=== PATIENT | female | born 1965 | race Caucasian/White ===

== ENCOUNTER 2017-02-22 12:23 | Emergency (ER) | payer OTHER ==
[~2017-02-22] VITALS: Ht 162.6 cm; Wt 86.4 kg
[2017-02-22] MEDS ORDERED: IOHEXOL 350 MG/ML 10 ML VIAL (for RAD DIAG) IVCONTRAST ONE (12:24)
[2017-02-22 12:25] VITALS: BP 131/81; PULSE 78; RESP 16; TEMP 98.8; O2SAT 98
[2017-02-22] MEDS ORDERED: KETOROLAC TROMETHAMINE 30 MG/ML (IVP) VIAL IV PUSH ONE (13:30)
[2017-02-22] MEDS ORDERED: DEXAMETHASONE SOD PHOS 20 MG/5 ML VIAL IV PUSH ONE (13:30)
[2017-02-22] MEDS ORDERED: SODIUM CHLOR 0.9% 1000 ML INJ 1,000 ML IV ONE (13:30)
--- NOTE | 2017-02-22 13:32 | PD ---
HPI Chief Complaint: Cardiac Complaint Time Seen by Provider: 13:13 Travel History International Travel<30 days: No Contact w/Intl Traveler<30days: No Traveled to known affect area: No History of Present Illness HPI Patient is a 51-year-old female who presents to emergency room with multiple complaints. Patient reports that for the past 3 days, she has been having increased body aches, reports that she has been having fevers and chills. Reports that she has not had any cough or congestion, denies being around any sick contacts. Patient reports that prior to coming to the emergency room, she had temperature of 103. She did take antipyretics prior to coming to the emergency room. Patient reports that she is also having chest pain. Patient reports that chest pain is substernal nature and feels like a sharp and stabbing pain. Patient reports that pain is exacerbated by inspiration, reports no diaphoresis with chest pain. Patient denies any recent travels or trips, denies history of coronary artery disease, hypertension or diabetes or hyperlipidemia. Patient reports that overall, she is healthy, reports that she does see a physician regularly and does not take any medications a every day basis. Patient reports that she did not receive the influenza vaccine this year. Patient denies any recent travels/trips. PFSH Past Medical History Medical History: Denies Significant Hx ?: Not LMP: 12/25/16 Menopausal: Yes Tubal Ligation: Yes Past Surgical History Other Surgery: Yes (back surgery) Social History Alcohol Use: No Tobacco Use: No Substance Use: No Allergies-Medications (Allergen,Severity, Reaction): Coded Allergies: No Known Allergies (Unverified , 02/22/17) Reported Meds & Prescriptions Reported Meds & Active Scripts Active No Active Prescriptions or Reported Medications Review of Systems General / Constitutional: Positive: Fever, Chills Eyes: No: Blurred Vision, Visual changes HENT: Positive: Headaches, No: Lightheadedness, Sore Throat, Neck Pain Cardiovascular: Positive: Chest Pain or Discomfort, Palpitations, No: Diaphoresis, Syncope, Dyspnea on exertion Respiratory: Positive: Shortness of Breath, No: Cough Gastrointestinal: No: Nausea, Vomiting, Abdominal Pain Genitourinary: No: Urgency, Frequency, Dysuria Musculoskeletal: No: Pain Skin: No Rash Neurologic: Positive: Headache, No: Weakness, Dizziness, Syncope Psychiatric: No: Depression Endocrine: No: Polydipsia Hematologic/Lymphatic: No: Easy Bruising Physical Exam Narrative GENERAL: NAD, nontoxic appearing SKIN: Focused skin assessment warm/dry. HEAD: Atraumatic. Normocephalic. EYES: Pupils equal and round. No scleral icterus. No injection or drainage. ENT: No nasal bleeding or discharge. Mucous membranes pink and moist. NECK: Trachea midline. No JVD. Negative Kernig's and Brudzinski's sign, no nuchal rigidity CARDIOVASCULAR: Regular rate and rhythm. No murmur appreciated. RESPIRATORY: No accessory muscle use. Clear to auscultation. Breath sounds equal bilaterally. GASTROINTESTINAL: Abdomen soft, non-tender, nondistended. Hepatic and splenic margins not palpable. MUSCULOSKELETAL: No obvious deformities. No clubbing. No cyanosis. No edema. NEUROLOGICAL: Awake and alert. No obvious cranial nerve deficits. Motor grossly within normal limits. Normal speech. CN 2-12 grossly intact with no neurological deficits PSYCHIATRIC: Appropriate mood and affect; insight and judgment normal. Data Data Last Documented VS Vital Signs Date Time Temp Pulse Resp B/P (MAP) Pulse Ox O2 Delivery O2 Flow Rate FiO2 02/22/17 12:25 98.8 78 16 131/81 (98) 98 Orders Orders Electrocardiogram (02/22/17 13:19) Complete Blood Count With Diff (02/22/17 13:19) Comprehensive Metabolic Panel (02/22/17 13:19) Influenzae A/B Antigen (02/22/17 13:19) Chest, Single Ap (02/22/17 13:19) Ecg Monitoring (02/22/17 13:19) Iv Access Insert/Monitor (02/22/17 13:19) Oximetry (02/22/17 13:19) Ketorolac Inj (Toradol Inj) (02/22/17 13:30) Ckmb (Isoenzyme) Profile (02/22/17 13:23) D-Dimer (02/22/17 13:23) Prothrombin Time / Inr (Pt) (02/22/17 13:23) Act Partial Throm Time (Ptt) (02/22/17 13:23) Troponin I (02/22/17 13:23) Sodium Chlor 0.9% 1000 Ml Inj (Ns 1000 M (02/22/17 13:30) Dexamethasone Inj (Decadron Inj) (02/22/17 13:30) Ct Pulmonary Angiogram (02/22/17 14:22) Labs Laboratory Tests Test 02/22/17 13:40 White Blood Count 6.1 TH/MM3 Red Blood Count 4.09 MIL/MM3 Hemoglobin 12.6 GM/DL Hematocrit 37.8 % Mean Corpuscular Volume 92.3 FL Mean Corpuscular Hemoglobin 30.8 PG Mean Corpuscular Hemoglobin Concent 33.3 % Red Cell Distribution Width 13.4 % Platelet Count 333 TH/MM3 Mean Platelet Volume 8.3 FL Neutrophils (%) (Auto) 57.5 % Lymphocytes (%) (Auto) 28.2 % Monocytes (%) (Auto) 13.0 % Eosinophils (%) (Auto) 0.9 % Basophils (%) (Auto) 0.4 % Neutrophils # (Auto) 3.5 TH/MM3 Lymphocytes # (Auto) 1.7 TH/MM3 Monocytes # (Auto) 0.8 TH/MM3 Eosinophils # (Auto) 0.1 TH/MM3 Basophils # (Auto) 0.0 TH/MM3 CBC Comment DIFF FINAL Differential Comment Prothrombin Time 10.6 SEC Prothromb Time International Ratio 1.0 RATIO Activated Partial Thromboplast Time 29.7 SEC D-Dimer Quantitative (PE/DVT) 1.25 MG/L FEU Blood Urea Nitrogen 9 MG/DL Creatinine 0.59 MG/DL Random Glucose 100 MG/DL Total Protein 8.8 GM/DL Albumin 3.5 GM/DL Calcium Level 10.7 MG/DL Alkaline Phosphatase 148 U/L Aspartate Amino Transf (AST/SGOT) 44 U/L Alanine Aminotransferase (ALT/SGPT) 92 U/L Total Bilirubin 0.3 MG/DL Sodium Level 136 MEQ/L Potassium Level 3.5 MEQ/L Chloride Level 101 MEQ/L Carbon Dioxide Level 28.8 MEQ/L Anion Gap 6 MEQ/L Estimat Glomerular Filtration Rate 107 ML/MIN Total Creatine Kinase 65 U/L Troponin I LESS THAN 0.02 NG/ML MDM Medical Decision Making Medical Screen Exam Complete: Yes Emergency Medical Condition: Yes Medical Record Reviewed: Yes Interpretation(s) EKG at 1342: NSR at 73bpm, qt/qtc: 380/406, nonspecific t wave changes, no acute st seg changes Vital Signs Date Time Temp Pulse Resp B/P (MAP) Pulse Ox O2 Delivery O2 Flow Rate FiO2 02/22/17 12:25 98.8 78 16 131/81 (35) 98 Differential Diagnosis Influenza, viral syndrome, pneumonia, ACS, arrhythmia, PE, pneumothorax Narrative Course 51-year-old female who presents to emergency room with multiple complaints, patient reports that she has had fever, chills and body aches with chest pain which has been ongoing for the past 3 days. During the course of the patients emergency department visit, the patients history, examination, and differential diagnosis were reviewed with the patient. The patient was placed on a cardiac catheterization technologist with oximetry and frequent blood pressure monitoring. The patient had a 20-gauge IV access obtained and blood work sent for analysis. The patient was initially provided IV fluids, IV Toradol as well as IV dexamethasone The patients laboratory studies were reviewed and remarkable for: Laboratory Tests Test 02/22/17 13:40 White Blood Count 6.1 TH/MM3 (4.0-11.0) Red Blood Count 4.09 MIL/MM3 (4.00-5.30) Hemoglobin 12.6 GM/DL (11.6-15.3) Hematocrit 37.8 % (35.0-46.0) Mean Corpuscular Volume 92.3 FL (80.0-100.0) Mean Corpuscular Hemoglobin 30.8 PG (27.0-34.0) Mean Corpuscular Hemoglobin Concent 33.3 % (32.0-36.0) Red Cell Distribution Width 13.4 % (11.6-17.2) Platelet Count 333 TH/MM3 (150-450) Mean Platelet Volume 8.3 FL (7.0-11.0) Neutrophils (%) (Auto) 57.5 % (16.0-70.0) Lymphocytes (%) (Auto) 28.2 % (9.0-44.0) Monocytes (%) (Auto) 13.0 % (0.0-8.0) Eosinophils (%) (Auto) 0.9 % (0.0-4.0) Basophils (%) (Auto) 0.4 % (0.0-2.0) Neutrophils # (Auto) 3.5 TH/MM3 (1.8-7.7) Lymphocytes # (Auto) 1.7 TH/MM3 (1.0-4.8) Monocytes # (Auto) 0.8 TH/MM3 (0-0.9) Eosinophils # (Auto) 0.1 TH/MM3 (0-0.4) Basophils # (Auto) 0.0 TH/MM3 (0-0.2) CBC Comment DIFF FINAL Differential Comment Prothrombin Time 10.6 SEC (9.8-11.6) Prothromb Time International Ratio 1.0 RATIO Activated Partial Thromboplast Time 29.7 SEC (24.3-30.1) D-Dimer Quantitative (PE/DVT) 1.25 MG/L FEU (0.00-0.50) Blood Urea Nitrogen 9 MG/DL (7-18) Creatinine 0.59 MG/DL (0.50-1.00) Random Glucose 100 MG/DL (74-106) Total Protein 8.8 GM/DL (6.4-8.2) Albumin 3.5 GM/DL (3.4-5.0) Calcium Level 10.7 MG/DL (8.5-10.1) Alkaline Phosphatase 148 U/L (45-117) Aspartate Amino Transf (AST/SGOT) 44 U/L (15-37) Alanine Aminotransferase (ALT/SGPT) 92 U/L (10-53) Total Bilirubin 0.3 MG/DL (0.2-1.0) Sodium Level 136 MEQ/L (136-145) Potassium Level 3.5 MEQ/L (3.5-5.1) Chloride Level 101 MEQ/L (98-107) Carbon Dioxide Level 28.8 MEQ/L (21.0-32.0) Anion Gap 6 MEQ/L (5-15) Estimat Glomerular Filtration Rate 107 ML/MIN (>89) Microbiology Date/Time Source Procedure Growth Status 02/22/17 13:40 Nasal Aspirate Influenza Types A,B Antigen ([facility]) - Final NEGATIVE FOR FLU A AND B ANTIGEN.... Complete Patient with a d-dimer of 1.25, patient does have pleuritic chest pain, CTA ordered to rule out PE. All labs and studies as well as incidental findings were reviewed with patient - patient agreeable to CTA, overall, patient reports that she is feeling much better at this time Radiology studies were reviewed and remarkable for: Last Impressions Chest X-Ray 02/22/17 1319 Signed Impressions: Service Date/Time: Wednesday, February 22, 2017 13:45 - CONCLUSION: No acute disease. Martínez Hall MD PE study pending - this was signed out to Dr. Weaver at change of shift. Diagnosis Primary Impression: Viral syndrome Patient Instructions: General Instructions Additional Instructions: Please provide patient with a copy of their lab work and studies at discharge* * Please follow up with your primary care doctor in 2-3 days Return to the ER if symptoms worsen or progress Return to the ER as needed Please drink plenty of fluids Scripts No Active Prescriptions or Reported Meds Nicole Mike DO Feb 22, 2017 13:32
[2017-02-22 14:03] LABS: AUTOMATED NEUTROPHIL # 3.5 TH/MM3 (1.8-7.7); BASOPHIL % 0.4 % (0.0-2.0); EOSINOPHIL # 0.1 TH/MM3 (0-0.4); EOSINOPHIL % 0.9 % (0.0-4.0); HEMATOCRIT 37.8 % (35.0-46.0); HEMO FLAGS DIFF FINAL; LYMPH % 28.2 % (9.0-44.0); LYMPHOCYTE # 1.7 TH/MM3 (1.0-4.8); MEAN CELL VOLUME 92.3 FL (80.0-100.0); MEAN CORPUSCULAR HEMOGLOBIN 30.8 PG (27.0-34.0); MEAN CORPUSCULAR HGB CONC 33.3 % (32.0-36.0); NEUT % 57.5 % (16.0-70.0); PLATELET COUNT 333 TH/MM3 (150-450); RED BLOOD COUNT 4.09 MIL/MM3 (4.00-5.30); RED CELL DISTRIBUTION WIDTH 13.4 % (11.6-17.2); WHITE BLOOD COUNT 6.1 TH/MM3 (4.0-11.0)
[2017-02-22 14:15] LABS: APTT (PATIENT) 29.7 SEC (24.3-30.1); PROTHROMBIN TIME - PATIENT 10.6 SEC (9.8-11.6)
[2017-02-22 14:18] LABS: ALT (GPT) 92 U/L (10-53); ANION GAP 6 MEQ/L (5-15); AST (GOT) 44 U/L (15-37); BICARBONATE 28.8 MEQ/L (21.0-32.0); BLOOD UREA NITROGEN 9 MG/DL (7-18); CHLORIDE 101 MEQ/L (98-107); GLOMERULAR FILTRATION RATE 107 ML/MIN (>89); POTASSIUM 3.5 MEQ/L (3.5-5.1); SODIUM (NA) 136 MEQ/L (136-145)
[2017-02-22 14:21] LABS: ALKALINE PHOSPHATASE 148 U/L (45-117); TOTAL BILIRUBIN ADULT 0.3 MG/DL (0.2-1.0)
[2017-02-22 15:08] LABS: CREATINE KINASE 65 U/L (26-192)
--- NOTE | 2017-02-22 15:24 | RADRPT ---
EXAM DATE/TIME: 02/22/2017 13:45 [facility] COMPARISON: No previous studies available for comparison. INDICATIONS : Fever. patient complains of body ache and headache, chest pain that comes and goes, shortness of vanessa th, and chills. patient also states that upon breathing, she feels like her heart is skipping a beat. MEDICAL HISTORY : None. SURGICAL HISTORY : None. ENCOUNTER: Initial ACUITY: 4 - 6 days PAIN SCORE: 0/10 LOCATION: Bilateral chest FINDINGS: A single view of the chest demonstrates the lungs to be symmetrically aerated without evidence of mas s, infiltrate or effusion. The cardiomediastinal contours are unremarkable. Osseous structures are intact. CONCLUSION: No acute disease. Martínez Hall MD on February 22, 2017 at 15:22 Board Certified Radiologist. This report was verified electronically.
--- NOTE | 2017-02-22 17:11 | RADRPT ---
EXAM DATE/TIME: 02/22/2017 16:17 [facility] COMPARISON: No previous studies available for comparison. INDICATIONS : Flew estephania symptoms with body aches. Chest pain. IV CONTRAST: 79 cc Omnipaque 350 (iohexol) IV RADIATION DOSE: 13.46 CTDIvol (mGy) MEDICAL HISTORY : None SURGICAL HISTORY : Tubal ligation. ENCOUNTER: Initial ACUITY: 1 day PAIN SCALE: 10/10 LOCATION: Bilateral chest TECHNIQUE: Volumetric scanning of the chest was performed using a pulmonary embolism protocol MIP images were re constructed. Using automated exposure control and adjustment of the mA and/or kV according to patien t size, radiation dose was kept as low as reasonably achievable to obtain optimal diagnostic quality images. DICOM format image data is available electronically for review and comparison. Follow-up recommendations for detected pulmonary nodules are based at a minimum on nodule size and pa tient risk factors according to Fleischner Society Guidelines. FINDINGS: PULMONARY ARTERIES: No filling defects are seen in the pulmonary arteries through the segmental level. LUNGS: There is no consolidation or pneumothorax . No concerning pulmonary nodule is visualized. PLEURAE: There is no pleural thickening or pleural effusion. MEDIASTINUM: There is good visualization of the great vessels of the middle mediastinum. No evidence of mediastin al or hilar adenopathy/mass. MUSCULOSKELETAL: Within normal limits for patient age. MISCELLANEOUS: The visualized upper abdominal organs demonstrate no acute abnormality. CONCLUSION: No acute disease. No evidence of acute pulmonary embolism. Martínez Hall MD on February 22, 2017 at 17:09 Board Certified Radiologist. This report was verified electronically.
--- NOTE | 2017-02-22 17:16 | PD ---
Physical Exam Narrative Patient was seen by ED physician and signed out to me. Data Data Last Documented VS Vital Signs Date Time Temp Pulse Resp B/P (MAP) Pulse Ox O2 Delivery O2 Flow Rate FiO2 02/22/17 12:25 98.8 78 16 131/81 (98) 98 Orders Orders Electrocardiogram (02/22/17 13:19) Complete Blood Count With Diff (02/22/17 13:19) Comprehensive Metabolic Panel (02/22/17 13:19) Influenzae A/B Antigen (02/22/17 13:19) Chest, Single Ap (02/22/17 13:19) Ecg Monitoring (02/22/17 13:19) Iv Access Insert/Monitor (02/22/17 13:19) Oximetry (02/22/17 13:19) Ketorolac Inj (Toradol Inj) (02/22/17 13:30) Ckmb (Isoenzyme) Profile (02/22/17 13:23) D-Dimer (02/22/17 13:23) Prothrombin Time / Inr (Pt) (02/22/17 13:23) Act Partial Throm Time (Ptt) (02/22/17 13:23) Troponin I (02/22/17 13:23) Sodium Chlor 0.9% 1000 Ml Inj (Ns 1000 M (02/22/17 13:30) Dexamethasone Inj (Decadron Inj) (02/22/17 13:30) Ct Pulmonary Angiogram (02/22/17 14:22) Iohexol 350 Inj (Omnipaque 350 Inj) (02/22/17 12:24) Labs Laboratory Tests Test 02/22/17 13:40 White Blood Count 6.1 TH/MM3 Red Blood Count 4.09 MIL/MM3 Hemoglobin 12.6 GM/DL Hematocrit 37.8 % Mean Corpuscular Volume 92.3 FL Mean Corpuscular Hemoglobin 30.8 PG Mean Corpuscular Hemoglobin Concent 33.3 % Red Cell Distribution Width 13.4 % Platelet Count 333 TH/MM3 Mean Platelet Volume 8.3 FL Neutrophils (%) (Auto) 57.5 % Lymphocytes (%) (Auto) 28.2 % Monocytes (%) (Auto) 13.0 % Eosinophils (%) (Auto) 0.9 % Basophils (%) (Auto) 0.4 % Neutrophils # (Auto) 3.5 TH/MM3 Lymphocytes # (Auto) 1.7 TH/MM3 Monocytes # (Auto) 0.8 TH/MM3 Eosinophils # (Auto) 0.1 TH/MM3 Basophils # (Auto) 0.0 TH/MM3 CBC Comment DIFF FINAL Differential Comment Prothrombin Time 10.6 SEC Prothromb Time International Ratio 1.0 RATIO Activated Partial Thromboplast Time 29.7 SEC D-Dimer Quantitative (PE/DVT) 1.25 MG/L FEU Blood Urea Nitrogen 9 MG/DL Creatinine 0.59 MG/DL Random Glucose 100 MG/DL Total Protein 8.8 GM/DL Albumin 3.5 GM/DL Calcium Level 10.7 MG/DL Alkaline Phosphatase 148 U/L Aspartate Amino Transf (AST/SGOT) 44 U/L Alanine Aminotransferase (ALT/SGPT) 92 U/L Total Bilirubin 0.3 MG/DL Sodium Level 136 MEQ/L Potassium Level 3.5 MEQ/L Chloride Level 101 MEQ/L Carbon Dioxide Level 28.8 MEQ/L Anion Gap 6 MEQ/L Estimat Glomerular Filtration Rate 107 ML/MIN Total Creatine Kinase 65 U/L Troponin I LESS THAN 0.02 NG/ML MDM Supervised Visit with TYRONE: No Interpretation(s) Last Impressions Chest X-Ray 02/22/17 1319 Signed Impressions: Service Date/Time: Wednesday, February 22, 2017 13:45 - CONCLUSION: No acute disease. Martínez Hall MD 1718 p.m. Pulmonary angiogram negative acute pathology. CBC within normal limit. CMP within normal limit. Cardiac enzymes are normal. AST 44. ALT 92. Alkaline phosphatase 148. D-dimer 1.25. Influenza AB antigen negative. Diagnosis Primary Impression: Viral syndrome Patient Instructions: General Instructions Additional Instruction: Please provide patient with a copy of their lab work and studies at discharge* * Please follow up with your primary care doctor in 2-3 days Return to the ER if symptoms worsen or progress Return to the ER as needed Please drink plenty of fluids Scripts No Active Prescriptions or Reported Meds Disposition: 01 DISCHARGE HOME Condition: Stable Kvng Weaver MD Feb 22, 2017 17:16
--- NOTE | 2017-02-23 15:50 | EKG ---
Date Performed: 02/22/2017 Time Performed: 13:42:59 PTAGE: 51 years EKG: Sinus rhythm NONSPECIFIC T-WAVE ABNORMALITY BORDERLINE ECG NO PREVIOUS TRACING DOCTOR: Brennen Singleton Interpretating Date/Time 02/23/2017 15:49:27
== END 2017-02-22 17:59 | disposition home or self-care (01) ==
LOC: NEPD 12:23
DX: B34.9 Viral infection, unspecified (principal)
CPT/HCPCS: 71010; 71275; 80053; 82550; 84484; 85025; 85379; 85610; 85730; 87804; 93005; 96361; 96374; 96375; 99285; J1100; J1885; J7030; Q9967